=== PATIENT | male | born 1970 | race Caucasian/White ===

== ENCOUNTER 2016-07-10 05:39 | Inpatient (IN) | payer OTHER ==
[~2016-07-10] VITALS: Ht 185.4 cm; Wt 124.7 kg
--- NOTE | ~2016-07-10 | CON ---
[place], [place] REPORT OF CONSULTATION [id number] UNIT #: [id number] ROOM: 402 DOCTOR: RIAZ MCCOY MD BIRTHDATE: [birth year] DOS: 07/11/2016 REASON FOR CONSULTATION: Chest pain, hypertension. HISTORY OF PRESENT ILLNESS: The patient is a 46-year-old man who has no previously documented history of heart disease. He was told that his blood pressure was elevated in the past, but not enough to require medical management. He has gained weight in the last several years and does have truncal obesity. While at work the day before yesterday, he began to notice an achy sensation in his right chest just to the right of his sternum. The pain was persistent and did not seem to get better or worse with exertion, food, deep breathing, position, etc. He became concerned and came to the hospital, where he was found to be severely hypertensive. In addition to his chest discomfort, he did describe some lightheadedness and some indigestion. On admission, his blood pressure was 222/106. It did improve quickly with therapy. He was admitted and serial cardiac enzymes were normal. His EKG showed no acute changes. We were asked to assist in his assessment. Overnight, his blood pressures have been under control. Serial troponin levels have been unremarkable. PAST MEDICAL HISTORY: Includes: 1. Hypertension, not requiring medical therapy up until now. 2. Gastroesophageal reflux disease. 3. Hyperlipidemia. 4. History of kidney stones. 5. History of obstructive sleep apnea. 6. Truncal obesity. MEDICATIONS PRIOR TO ADMISSION: None. ALLERGIES: The patient has no known drug allergies. FAMILY HISTORY: Positive for several family members having "heart issues". Some family members have had atherosclerotic heart disease and had stents placed. One family member had a valve problem, another family member had a heart rhythm problem. SOCIAL HISTORY: The patient is . 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 He does not smoke or use illegal drugs. He rarely drinks alcohol. PHYSICAL EXAMINATION: GENERAL: The patient is an overweight white male who is awake, alert and oriented. VITAL SIGNS: Pulse is 62 and regular, blood pressures currently 114/76. He is afebrile. He weighs 124.7 kilograms with a body mass index of 36.3. HEENT: Normocephalic, atraumatic. Extraocular muscles are intact. Sclerae are clear. Pupils are round and reactive to light. Oral mucosa is moist. Tongue is midline. [place], [place] REPORT OF CONSULTATION NAME: BYRON MAHER UNIT #: [id number] ROOM: 402 DOCTOR: RIAZ MCCOY MD BIRTHDATE: [birth year] NECK: Supple. He has no jugular distention. Carotids are full. I heard no bruits. He had no neck or supraclavicular masses. No thyromegaly. LUNGS: Respirations are unlabored. His chest is clear to auscultation and percussion. He has no presacral edema or chest wall tenderness. CARDIOVASCULAR: His heart has a regular rhythm. He has a fourth heart sound, but no third heart sound. The PMI is not displaced. He has no precordial heave, lift or thrill and no significant murmur. ABDOMEN: Soft and normally active without masses, organomegaly or bruits. EXTREMITIES: Showed no edema. Peripheral pulses were easily palpated in the feet bilaterally. LABORATORY DATA: I reviewed his electrocardiogram. It showed sinus rhythm with low voltage, but no acute changes. Hemoglobin is 13.8 with hematocrit 40.9, there is 6000 white cells and 243,000 platelets present. INR is 1.0. Sodium 143, potassium 3.9, BUN 14, creatinine 0.76. Sugar this morning is 96. Serial troponins are normal. Total cholesterol is 237. Triglycerides are 308, LDL is 144, HDL is 31. IMPRESSION: 1. Atypical chest pain. The patient has ruled out for myocardial infarction. 2. Metabolic syndrome. The patient does meet the diagnostic criteria for metabolic syndrome, which implies a higher risk of coronary artery disease in the future. His ACC, AHA risk assessment indicates that his 10-year risk of coronary artery disease is 5.7% (risk for same aged patient with optimal risk factor is 1.2%). 3. Insulin resistance. 4. Truncal obesity. 5. Newly documented hypertension. PLAN: I agree with managing his blood pressure with lisinopril. If that is not effective then I would add thiazide diuretic. The patient should begin a strict risk factor modification program with diet, exercise, and weight loss. He probably should be on a statin as well. In order to assess the cause of his chest pain, we will proceed with an exercise stress test today. Further recommendations will depend upon the results of the stress test. [facility] and I thank the hospitalist service for asking our advice regarding his care. [place], [place] REPORT OF CONSULTATION NAME: BYRON MAHER UNIT #: [id number] ROOM: 402 DOCTOR: RIAZ MCCOY MD BIRTHDATE: [birth year] RIAZ MCCOY MD CM:CONSTR:REPORT OF CONSULTATION 1132 07/11/16 1231 interface
--- NOTE | ~2016-07-10 | ST ---
[place], [place] EXERCISE STRESS TEST REPORT [id number] UNIT #: [id number] ROOM: 402 DOCTOR: RIAZ MCCOY MD BIRTHDATE: [birth year] DOS: 07/11/2016 INDICATIONS: Atypical chest pain. PROCEDURE: The patient walked 8 minutes 40 seconds on a full [place] protocol and achieved a maximum heart rate of 162, which represented 93% of his maximum predicted heart rate at a workload of 10 mets. He stopped for dyspnea and did not reproduce his chest pain. The resting electrocardiogram showed low voltage, but was an otherwise normal tracing. With exercise, no further changes occurred. One minute prior to completion of exercise protocol, the patient was given radionuclide intravenously. IMPRESSION: 1. Adequate exercise capacity without chest pain or diagnostic electrocardiographic changes. 2. Person treadmill score 8.6 consistent with a low probability of coronary artery disease. 3. Radionuclide injected. Please see the separate imaging report for further details of the patient's stress test results. RIAZ MCCOY MD CM:STRESS:EXERCISE STRESS TEST REPORT [id number] RIAZ MCCOY MD
[~2016-07-10 05:39] MED LIST: HYTRIN1 M1 PO; LOMOTIL 0.025 M1 TA1 PO; MEDROL DOSEPAK4 MG PO; PERCOCET 325 MG1 TA7 PO; PHENERGAN25 M1 PO; TORADOL10 MG PO; ZOFRAN ODT4 MG SL
[2016-07-10 06:21] LABS: BASO % 0.6 % (0.0-1.0); EOS % 0.6 % (1.0-4.0); HEMATOCRIT 46.6 % (42.0-52.0); HEMOGLOBIN 15.9 g/dl (14.0-18.0); IG # 0.1 10*3/uL (0.0-0.1); LYMPH # 2.6 10*3/uL (1.3-4.4); LYMPH % 39.1 % (27.0-41.0); MEAN CELL VOLUME 84.7 fl (80.0-94.0); MEAN CORPUSCULAR HGB 28.9 pg (27.0-31.0); MEAN CORPUSCULAR HGB CONC 34.1 g/dl (33.0-37.0); MEAN PLATELET VOLUME 9.7 fl (9.6-12.3); MONO # 0.4 10*3/uL (0.1-1.0); MONO % 6.1 % (3.0-9.0); NEUT # 3.5 10*3/uL (2.3-7.9); NEUT % 52.3 % (47.0-73.0); PLATELET COUNT AUTOMATED 277 10*3/uL (130-400); RED CELL DISTRI WIDTH 13.1 % (0-14.5); WHITE BLOOD COUNT 6.7 10*3/uL (4.8-10.8)
[2016-07-10 06:42] LABS: ALBUMIN 4.1 gm/dl (3.1-4.5); ALKALINE PHOSPHATASE 91 U/L (45-117); BILIRUBIN, TOTAL 0.5 mg/dl (0.2-1.0); BUN 14 mg/dl (7-24); CARBON DIOXIDE 27 mmol/L (21-32); CHLORIDE 104 mmol/L (98-107); CHOLESTEROL 291 mg/dL (<200); EST GLOM FILT AFRICAN AMERICAN > 60 ml/min; GLUCOSE 119 mg/dL (65-99); HDL CHOLESTEROL 39 mg/dl (40-60); LDL CHOLESTEROL 179 mg/dL (9-159); POTASSIUM 3.7 mmol/L (3.5-5.1); SGOT/AST 40 IU/L (3-35); SGPT/ALT 103 U/L (12-78); SODIUM 142 mmol/L (136-145); TOTAL PROTEIN 8.3 gm/dL (6.4-8.2); TRIGLYCERIDES 365 mg/dl (<150); VLDL CHOLESTEROL 73 mg/dL (6-40)
[2016-07-10 06:43] LABS: TROPONIN I < 0.015 ng/ml (<0.045)
[2016-07-10 12:07] LABS: CPK 68 U/L (39-308)
[2016-07-10 12:09] LABS: CKMB < 0.5 ng/ml (0.5-3.6); TROPONIN I < 0.015 ng/ml (<0.045)
[2016-07-10 12:55] LABS: HEMOGLOBIN A1c 6.4 % (4.8-5.6)
[2016-07-10 16:31] LABS: BILIRUBIN NEGATIVE (NEGATIVE); BLOOD TRACE-INTACT (NEGATIVE); CLARITY CLEAR (CLEAR); COLOR YELLOW (YELLOW); GLUCOSE NEGATIVE (NEGATIVE); KETONE NEGATIVE (NEGATIVE); LEUKO ESTERASE NEGATIVE (NEGATIVE); NITRITE NEGATIVE (NEGATIVE); PH 5.5 (5.0-9.0); PROTEIN NEGATIVE (NEGATIVE); SPECIFIC GRAVITY >= 1.030 (1.005-1.030); UROBILINOGEN 0.2 E.U./dl (0.2-1.0)
[2016-07-10 16:39] LABS: RBC 0-2 rbc/hpf (0-2); URINE REFLEX COMMENT NO (NO); WBC 0-2 wbc/hpf (0-5)
[2016-07-10 18:08] LABS: CPK 71 U/L (39-308)
[2016-07-10 18:10] LABS: CKMB < 0.5 ng/ml (0.5-3.6); TROPONIN I < 0.015 ng/ml (<0.045)
[2016-07-11 01:19] LABS: CKMB < 0.5 ng/ml (0.5-3.6); CPK 58 U/L (39-308); TROPONIN I < 0.015 ng/ml (<0.045)
[2016-07-11 07:18] LABS: BASO % 0.5 % (0.0-1.0); EOS # 0.1 10*3/uL (0.0-0.4); HEMATOCRIT 40.9 % (42.0-52.0); IG # 0.1 10*3/uL (0.0-0.1); LYMPH # 2.3 10*3/uL (1.3-4.4); LYMPH % 38.2 % (27.0-41.0); MEAN CELL VOLUME 85.7 fl (80.0-94.0); MEAN CORPUSCULAR HGB 28.9 pg (27.0-31.0); MEAN CORPUSCULAR HGB CONC 33.7 g/dl (33.0-37.0); MEAN PLATELET VOLUME 9.3 fl (9.6-12.3); MONO # 0.4 10*3/uL (0.1-1.0); MONO % 6.7 % (3.0-9.0); NEUT # 3.1 10*3/uL (2.3-7.9); NEUT % 51.9 % (47.0-73.0); PLATELET COUNT AUTOMATED 243 10*3/uL (130-400); RED BLOOD COUNT 4.77 10*6/uL (4.50-5.90); RED CELL DISTRI WIDTH 13.1 % (0-14.5)
[2016-07-11 07:23] LABS: HEMOGLOBIN 13.8 g/dl (14.0-18.0)
[2016-07-11 07:34] LABS: ALBUMIN 3.3 gm/dl (3.1-4.5); BILIRUBIN, TOTAL 0.5 mg/dl (0.2-1.0); BUN 14 mg/dl (7-24); CARBON DIOXIDE 24 mmol/L (21-32); CHLORIDE 108 mmol/L (98-107); CHOLESTEROL 237 mg/dL (<200); EST GLOM FILT AFRICAN AMERICAN > 60 ml/min; GLUCOSE 96 mg/dL (65-99); MAGNESIUM 2.2 mg/dL (1.5-2.1); PHOSPHOROUS 3.5 mg/dL (2.5-4.9); POTASSIUM 3.9 mmol/L (3.5-5.1); SGOT/AST 38 IU/L (3-35); SGPT/ALT 85 U/L (12-78); SODIUM 143 mmol/L (136-145); TOTAL PROTEIN 6.6 gm/dL (6.4-8.2)
[2016-07-11 07:39] LABS: ALKALINE PHOSPHATASE 70 U/L (45-117); FREE T4 0.95 ng/dl (0.76-1.46); HDL CHOLESTEROL 31 mg/dl (40-60); LDL CHOLESTEROL 144 mg/dL (9-159); TRIGLYCERIDES 308 mg/dl (<150); VLDL CHOLESTEROL 62 mg/dL (6-40)
[2016-07-11 07:49] LABS: PROTHROMBIN TIME 10.4 SECONDS (9.0-12.4)
[2016-07-11 08:11] LABS: HEPATITIS C VIRUS ANTIBODY <0.1 s/co (0.0-0.9); HIV 1+2 AB + HIV1 P24 AG Non Reactive (Non Reactive)
[2016-07-11 08:12] LABS: FOLIC ACID 21.22 ng/mL (>5.38); VITAMIN D, 25-HYDROXY 24.2 ng/mL (30-100)
[2016-07-11] MEDS ORDERED: ASPIRIN ADULT L81 M2 PO (16:39)
[2016-07-11] MEDS ORDERED: SIMVASTATIN20 MG PO (16:39)
[2016-07-11] MEDS ORDERED: LISINOPRIL10 M1 PO (16:39)
[2016-07-11] MEDS ORDERED: VITAMIN D-32000 UNIT PO (16:41)
[2016-07-11] MEDS ORDERED: VITAMIN E400 UNI1 PO (16:43)
== END 2016-07-11 17:23 | disposition home or self-care (01) | DRG 313 ==
LOC: ED 05:39 → 4E 07:10 → EDHOLD 07:10 → 4E 08:02
PROVIDERS: Emergency Medicine Emergency Medical Services; Hospitalist
DX: R07.89 Other chest pain (principal); I10 Essential (primary) hypertension; I16.0 Hypertensive urgency; E55.9 Vitamin D deficiency, unspecified; K21.9 Gastro-esophageal reflux disease without esophagitis; E66.9 Obesity, unspecified; R73.03 Prediabetes; G47.33 Obstructive sleep apnea (adult) (pediatric); E78.2 Mixed hyperlipidemia; Z82.49 Family history of ischemic heart disease and other diseases of the circulatory system; Z87.442 Personal history of urinary calculi

== ENCOUNTER → 2017-04-07 | Outpatient (CLI) | payer OTHER ==
[~2017-04-07] MED LIST changes: +ASPIRIN ADULT L81 M2 PO; +LISINOPRIL10 M1 PO; +SIMVASTATIN20 MG PO; +VITAMIN D-32000 UNIT PO; +VITAMIN E400 UNI1 PO
== END ==
LOC: RAD 10:47
DX: M19.012 Primary osteoarthritis, left shoulder (principal); M75.42 Impingement syndrome of left shoulder

== ENCOUNTER → 2018-04-06 | Outpatient (CLI) | payer OTHER ==
[2018-04-06 12:15] LABS: BASO % 0.6 % (0.0-1.0); EOS # 0.1 10*3/uL (0.0-0.4); EOS % 0.7 % (1.0-4.0); HEMATOCRIT 45.7 % (42.0-52.0); HEMOGLOBIN 15.4 g/dl (14.0-18.0); LYMPH # 2.3 10*3/uL (1.3-4.4); LYMPH % 34.5 % (27.0-41.0); MEAN CELL VOLUME 84.5 fl (80.0-94.0); MEAN CORPUSCULAR HGB 28.5 pg (27.0-31.0); MEAN CORPUSCULAR HGB CONC 33.7 g/dl (33.0-37.0); MEAN PLATELET VOLUME 9.5 fl (9.6-12.3); MONO # 0.5 10*3/uL (0.1-1.0); MONO % 6.8 % (3.0-9.0); NEUT # 3.8 10*3/uL (2.3-7.9); NEUT % 55.8 % (47.0-73.0); PLATELET COUNT AUTOMATED 301 10*3/uL (130-400); RED BLOOD COUNT 5.41 10*6/uL (4.50-5.90); RED CELL DISTRI WIDTH 13.2 % (0-14.5); WHITE BLOOD COUNT 6.8 10*3/uL (4.8-10.8)
[2018-04-06 12:50] LABS: ALBUMIN 3.9 gm/dl (3.1-4.5); ALKALINE PHOSPHATASE 97 U/L (45-117); BILIRUBIN, DIRECT 0.1 mg/dL (0.0-0.2); BUN 11 mg/dl (7-24); CHLORIDE 105 mmol/L (98-107); CHOLESTEROL 231 mg/dL (<200); CREATININE 0.96 mg/dL (0.70-1.30); HDL CHOLESTEROL 30 mg/dl (40-60); LDL CHOLESTEROL 143 mg/dL (9-159); POTASSIUM 3.5 mmol/L (3.5-5.1); SGOT/AST 38 IU/L (3-35); SGPT/ALT 84 U/L (12-78); SODIUM 140 mmol/L (136-145); THYROXINE (T4) TOTAL 11.3 ug/dl (4.5-12.1); TOTAL PROTEIN 7.9 gm/dL (6.4-8.2); TRIGLYCERIDES 292 mg/dl (<150); VLDL CHOLESTEROL 58 mg/dL (6-40)
== END | disposition home or self-care (01) ==
LOC: LAB 11:47
PROVIDERS: Family Medicine
DX: R91.8 Other nonspecific abnormal finding of lung field (principal); G95.89 Other specified diseases of spinal cord; I10 Essential (primary) hypertension; R35.1 Nocturia; R35.8 Other polyuria

== ENCOUNTER → 2018-12-14 | Outpatient (CLI) | payer OTHER ==
[2018-12-14 10:51] LABS: BASO % 0.6 % (0.0-1.0); EOS % 0.3 % (1.0-4.0); HEMATOCRIT 44.2 % (42.0-52.0); HEMOGLOBIN 14.2 g/dl (14.0-18.0); LYMPH # 1.7 10*3/uL (1.3-4.4); LYMPH % 25.5 % (27.0-41.0); MEAN CELL VOLUME 88.4 fl (80.0-94.0); MEAN CORPUSCULAR HGB 28.4 pg (27.0-31.0); MEAN CORPUSCULAR HGB CONC 32.1 g/dl (33.0-37.0); MEAN PLATELET VOLUME 9.6 fl (9.6-12.3); MONO # 0.4 10*3/uL (0.1-1.0); MONO % 6.6 % (3.0-9.0); NEUT # 4.3 10*3/uL (2.3-7.9); NEUT % 65.2 % (47.0-73.0); PLATELET COUNT AUTOMATED 278 10*3/uL (130-400); RED CELL DISTRI WIDTH 13.6 % (0-14.5); WHITE BLOOD COUNT 6.6 10*3/uL (4.8-10.8)
[2018-12-14 11:28] LABS: ALBUMIN 3.8 gm/dl (3.1-4.5); ALKALINE PHOSPHATASE 88 U/L (45-117); BILIRUBIN, DIRECT < 0.1 mg/dL (0.0-0.2); BUN 11 mg/dl (7-24); CHLORIDE 109 mmol/L (98-107); CHOLESTEROL 243 mg/dL (<200); CREATININE 0.99 mg/dL (0.70-1.30); HDL CHOLESTEROL 32 mg/dl (40-60); LDL CHOLESTEROL 159 mg/dL (9-159); POTASSIUM 3.7 mmol/L (3.5-5.1); SGOT/AST 37 IU/L (3-35); SGPT/ALT 75 U/L (12-78); SODIUM 140 mmol/L (136-145); TOTAL PROTEIN 7.5 gm/dL (6.4-8.2); TRIGLYCERIDES 258 mg/dl (<150); VLDL CHOLESTEROL 52 mg/dL (6-40)
== END | disposition home or self-care (01) ==
LOC: LAB 10:23
PROVIDERS: Family Medicine
DX: I10 Essential (primary) hypertension (principal); R94.5 Abnormal results of liver function studies

== ENCOUNTER 2019-04-05 06:15 | Emergency (ER) | payer OTHER ==
[~2019-04-05] VITALS: Ht 185.4 cm; Wt 127.0 kg
== END 2019-04-05 08:41 | disposition home or self-care (01) ==
LOC: ED 06:15
DX: S93.401A Sprain of unspecified ligament of right ankle, initial encounter (principal); I10 Essential (primary) hypertension; K21.9 Gastro-esophageal reflux disease without esophagitis; E66.9 Obesity, unspecified; E78.5 Hyperlipidemia, unspecified; Z68.39 Body mass index [BMI] 39.0-39.9, adult; W18.40XA Slipping, tripping and stumbling without falling, unspecified, initial encounter; Y93.89 Activity, other specified; Y92.89 Other specified places as the place of occurrence of the external cause; Y99.8 Other external cause status

== ENCOUNTER → 2019-06-10 | Outpatient (CLI) | payer OTHER ==
[2019-06-10 13:49] LABS: HEMATOCRIT 43.3 % (42.0-52.0); MEAN CELL VOLUME 86.6 fl (80.0-94.0); MEAN CORPUSCULAR HGB CONC 32.3 g/dl (33.0-37.0); MEAN PLATELET VOLUME 9.2 fl (9.6-12.3); PLATELET COUNT AUTOMATED 311 10*3/uL (130-400); RED CELL DISTRI WIDTH 13.2 % (0-14.5); WHITE BLOOD COUNT 6.8 10*3/uL (4.8-10.8)
[2019-06-10 14:11] LABS: BASOPHILS 1 % (0-1); PLATELET SUFFICIENCY NORMAL (NORMAL); TOTAL CELLS COUNTED 100 #CELLS
[2019-06-10 14:12] LABS: POLYCHROMASIA SLIGHT
[2019-06-10 14:20] LABS: ALBUMIN 3.8 gm/dl (3.1-4.5); ALKALINE PHOSPHATASE 104 U/L (45-117); BILIRUBIN, DIRECT < 0.1 mg/dL (0.0-0.2); BUN 11 mg/dl (7-24); CHLORIDE 107 mmol/L (98-107); CHOLESTEROL 216 mg/dL (<200); CREATININE 1.06 mg/dL (0.70-1.30); HDL CHOLESTEROL 28 mg/dl (40-60); LDL CHOLESTEROL 137 mg/dL (9-159); POTASSIUM 4.2 mmol/L (3.5-5.1); SGOT/AST 47 IU/L (3-35); SGPT/ALT 115 U/L (12-78); SODIUM 140 mmol/L (136-145); TOTAL PROTEIN 7.7 gm/dL (6.4-8.2); TRIGLYCERIDES 253 mg/dl (<150); VLDL CHOLESTEROL 51 mg/dL (6-40)
== END | disposition home or self-care (01) ==
LOC: LAB 13:26
PROVIDERS: Family Medicine
DX: I10 Essential (primary) hypertension (principal)

== ENCOUNTER → 2019-12-30 | Outpatient (CLI) | payer OTHER ==
[2019-12-30 08:47] LABS: BASO % 0.5 % (0.0-1.0); EOS % 0.4 % (1.0-4.0); HEMATOCRIT 42.4 % (42.0-52.0); LYMPH # 1.6 10*3/uL (1.3-4.4); LYMPH % 29.2 % (27.0-41.0); MEAN CELL VOLUME 84.3 fl (80.0-94.0); MEAN CORPUSCULAR HGB CONC 33.3 g/dl (33.0-37.0); MONO # 0.3 10*3/uL (0.1-1.0); NEUT # 3.4 10*3/uL (2.3-7.9); NEUT % 61.2 % (47.0-73.0); PLATELET COUNT AUTOMATED 240 10*3/uL (130-400); RED BLOOD COUNT 5.03 10*6/uL (4.50-5.90); RED CELL DISTRI WIDTH 12.9 % (0-14.5); WHITE BLOOD COUNT 5.5 10*3/uL (4.8-10.8)
[2019-12-30 09:21] LABS: ALBUMIN 3.8 gm/dl (3.1-4.5); ALKALINE PHOSPHATASE 144 U/L (45-117); BILIRUBIN, DIRECT < 0.1 mg/dL (0.0-0.2); BUN 14 mg/dl (7-24); CHLORIDE 104 mmol/L (98-107); CHOLESTEROL 262 mg/dL (<200); CREATININE 1.09 mg/dL (0.70-1.30); HDL CHOLESTEROL 23 mg/dl (40-60); POTASSIUM 3.9 mmol/L (3.5-5.1); SGOT/AST 75 IU/L (3-35); SGPT/ALT 137 U/L (12-78); SODIUM 137 mmol/L (136-145); TOTAL PROTEIN 7.6 gm/dL (6.4-8.2); TRIGLYCERIDES 518 mg/dl (<150)
== END | disposition home or self-care (01) ==
LOC: LAB 08:23
PROVIDERS: ATTEND Family Medicine
DX: I10 Essential (primary) hypertension (principal); E11.9 Type 2 diabetes mellitus without complications